=== PATIENT | male | born 1980 | race Caucasian/White ===

== ENCOUNTER 2020-09-01 14:00 | Emergency (ER) | payer OTHER, SELFPAY ==
[2020-09-01 15:04] VITALS: BP 149/91; PULSE 90; RESP 16; TEMP 37.1; O2SAT 99; BMI 24.5
[2020-09-01 15:47] LABS: COVID19 -Nasal RAPID Negative (Negative)
--- NOTE | 2020-09-01 18:31 | ED_ITS ---
HPI - URI/Sore Throat General Chief Complaint: Upper Respiratory Symptoms Stated Complaint: Exposed to COVID, Cold Like Symptoms Time Seen by Provider: 09/01/20 16:56 Source: patient Mode of arrival: Ambulatory Limitations: no limitations History of Present Illness HPI Narrative: 40-year-old male nonsmoker with noncontributory medical history presents with a chief complaint of concern about a recent COVID exposure. He was exposed to a person reading known to me COVID positive about 5 days ago and hopes to be tested. He denies any symptoms such as runny nose, sneezing, sore throat or cough. He denies chest pain or shortness of breath. He denies nausea, vomiting or diarrhea. He denies any loss of smell and has no fever. He is most concerned because his at home has cancer and wants to be safe. MD Complaint: other Context: sick contacts Associated symptoms: denies other symptoms Treatments prior to arrival: none Related Data Allergies Allergy/AdvReac Type Severity Reaction Status Date / Time Penicillins Allergy Verified 09/01/20 15:04 Review of Systems Constitutional Constitutional: Denies chills, Denies fatigue, Denies fever(s), Denies frequent falls, Denies lethargy and Denies weakness Eyes Eyes: Denies change in vision, Denies eye discharge, Denies irritation and De nies loss of vision ENT Ears, Nose, Mouth, and Throat: Denies change in voice, Denies dizziness, Denies neck pain, Denies sore throat and Denies throat swelling Cardiovascular Cardiovascular: Denies chest pain, Denies irregular heart rhythm, Denies lightheadedness, Denies palpitations, Denies dyspnea, Denies dyspnea on exertion and Denies orthopnea Respiratory Respiratory: Denies cough, Denies dyspnea, Denies dyspnea on exertion and Denies wheezing Gastrointestinal Gastrointestinal: Denies abdominal pain, Denies change in bowel habits, Denies diarrhea, Denies nausea and Denies vomiting Musculoskeletal Musculoskeletal: Denies neck pain and Denies numbness Integumentary/Breasts Skin/Breast: Denies pruritus, Denies erythema, Denies rash and Denies wounds Neurologic Neurologic: Denies behavioral changes, Denies confusion, Denies dizziness, Denies frequent falls, Denies loss of vision, Denies numbness and Denies weakness Psychiatric Psychiatric: Denies anxiety, Denies behavioral changes, Denies confusion, Denies depression, Denies homicidal ideation and Denies suicidal ideation Endocrine Endocrine: Denies fatigue, Denies flushing and Denies palpitations Hematologic/Lymphatic Hematologic/Lymphatic: Denies easy bruising Allergic/Immunologic Allergic/Immunologic: Denies urticaria, Denies throat swelling and Denies wheezing Patient History Social History Smoking Status: Never smoker Smoking Status: Never smoker alcohol intake frequency: other Substance Use Type: does not use Exam Narrative Exam Narrative: GEN: AOx3 and in mild distress EYES: Pupils are equal, round, and reactive to light and accommodation. Extraoccular muscles are intact bilaterally. There is no subconjunctival hemorrhage or exudate. CHEST: Lungs are clear to auscultation bilaterally and free of wheezes, rales, or rhonchi. Heart rate is regular rhythm, there are no murmurs, clicks, rubs, or gallops. There is no chest wall tenderness. ABD: Abdomen is soft and nontender. There is no guarding or rebound. Bowel sounds are normal in all 4 quadrants. There is no mass or organomegaly. EXT: Full painless ROM of all extremities with no loss of sensation or strength. SKIN: Warm, pink, and dry. No erythema or rash Initial Vital Signs Initial Vital Signs: Vital Signs Temperature 98.8 F 09/01/20 15:04 Pulse Rate 90 09/01/20 15:04 Respiratory Rate 16 09/01/20 15:04 Blood Pressure 149/91 H 09/01/20 15:04 Pulse Oximetry 99 09/01/20 15:04 Course Orders Ordered: ED Orders 09/01/20 15:10 COVID19 Stat Vital Signs Vital signs: Vital Signs - 8 hr 09/01/20 15:04 Temperature 98.8 F Pulse Rate 90 Respiratory Rate 16 Blood Pressure 149/91 H Pulse Oximetry 99 MDM - URI/Sore Throat Lab Data Labs: Lab Results 09/01/20 Range/Units 15:10 COVID-19 PCR Negative (Negative) Discharge Plan Departure Patient Disposition: Home Clinical Impression: Upper respiratory infection Qualifiers: URI type: unspecified viral URI Qualified Code(s): J06.9 - Acute upper respiratory infection, unspecified Instructions: Coronavirus Disease 2019 Activity Restrictions/Additional Instructions: *You have been diagnosed with [exposure to COVID-19, your swab today was negative] *What to do: *Take medications as directed *Follow up with your primary care provider in 2-3 days, call for an appointment. Let them know you were seen in the Emergency Department and that we ask that you be seen in follow up *Return to ER if you should have any new, worsening or concerning symptoms Referrals: Bashir Noguera [Primary Care Provider] -
== END 2020-09-01 18:30 | disposition home or self-care (01) ==
PROVIDERS: Emergency Medicine; Emergency Provider Emergency Medicine; PCP Student in an Organized Health Care Education/Training Program
DX: J06.9 Acute upper respiratory infection, unspecified (principal); Z20.828 Contact with and (suspected) exposure to other viral communicable diseases
CPT/HCPCS: 87635; 99281; 99282

== ENCOUNTER 2025-06-16 13:02 | Emergency (ER) | payer OTHER, SELFPAY ==
[2025-06-16 13:08] VITALS: BP 150/84; PULSE 94; RESP 15; TEMP 36.8; O2SAT 98; BMI 23.8
--- NOTE | 2025-06-16 15:26 | DI.CT.S_ITS ---
PROCEDURE: CT HEAD/BRAIN WO CON INDICATIONS: headaches increasing frequency TECHNIQUE: Noncontrast 4.5 mm thick angled axial sections acquired from the foramen magnum to the vertex, with coronal and sagittal reformats. For radiation dose reduction, the following was used: automated exposure control, adjustment of mA and/or kV according to patient size. COMPARISON: None. FINDINGS: Image quality: Diagnostic. CSF spaces: Basal cisterns are patent. No extra-axial fluid collections. Ventricles are normal in size and shape. Brain: No midline shift. No intracranial mass effect or hemorrhage. Arnold- white matter interface is normal. Skull and face: Calvarium and visualized facial bones are intact, without suspicious lesions. Sinuses: Visualized sinuses and mastoids are clear. IMPRESSION: No acute intracranial pathology. Dictated by: Vijay Arboleda M.D. on 06/16/2025 at 15:28 Approved by: Vijay Arboleda M.D. on 06/16/2025 at 15:30
--- NOTE | 2025-06-16 15:26 | DI.CT.S_ITS ---
PROCEDURE: CT ANGIO HEAD AND NECK INDICATIONS: left anterior neck pain with headache TECHNIQUE: After the administration of intravenous contrast, 1 mm thick sections acquired from the aortic arch through the [place] of [place]. 3-dimensional adrbpye-tdmvncenv-buiyambhob (MIP) and/or volume rendering reformats were acquired of the central intracranial vasculature and neck separately. For radiation dose reduction, the following was used: automated exposure control, adjustment of mA and/or kV according to patient size. COMPARISON: None. FINDINGS: Image quality: Diagnostic. Cerebral CT Angiogram: Internal carotid arteries: No acute findings. Intracranial ICA are patent with no significant stenosis. No occlusion. No aneurysm. Anterior cerebral arteries: Unremarkable. No significant stenosis. No occlusion. No aneurysm. Middle cerebral arteries: Unremarkable. No significant stenosis. No occlusion. No aneurysm. Posterior cerebral arteries: Persistent circulation bilaterally. No significant stenosis. No occlusion. No aneurysm. Basilar artery: Unremarkable. No significant stenosis. No occlusion. No aneurysm. Vertebral arteries: Unremarkable as visualized. Dural venous sinuses: Unremarkable given phase of enhancement. Other: Arterial phase appearance of the brain parenchyma is unremarkable. Neck CT Angiogram: Internal carotid arteries: Unremarkable. No significant stenosis. No dissection or occlusion. Common carotid arteries: Unremarkable. No significant stenosis. No dissection or occlusion. External carotid arteries: Unremarkable. No occlusion. Vertebral arteries: Unremarkable. No significant stenosis. No dissection or occlusion. Aortic Arch and Mediastinum: Partially visualized aortic arch unremarkable without evidence of aneurysm. Origins of the great vessels unremarkable. Other: Arterial phase soft tissues of the neck and chest are unremarkable. Soft tissue nodule within the subcutaneous tissues of the right neck near the midline measuring 1.2 cm likely reflecting epidermal inclusion cyst. IMPRESSION: No significant intracranial arterial abnormality is seen. No significant abnormality is seen within the arteries of the neck. Possible epidermal inclusion cyst within the superior neck near the right midline Any quantitative measurements of stenosis were performed using NASCET criteria. Dictated by: Vijay Arboleda M.D. on 06/16/2025 at 15:33 Approved by: Vijay Arboleda M.D. on 06/16/2025 at 15:38
--- NOTE | 2025-06-16 15:29 | ED.NECK ---
HPI - Neck Pain/Injury General Chief Complaint: Neck Pain/Injury Stated Complaint: Headaches, L Neck Pulsating When Standing Time Seen by Provider: 06/16/25 14:54 Mode of arrival: Ambulatory History of Present Illness HPI Narrative: 44-year-old male presents with left anterior neck pain that he woke up with this morning. He noticed it when he stood up out of bed and there was a sharp pain in the left side of his neck just above the clavicle. He noticed that standing up causes it to be triggered again. It is not worse with turning his head [id number] or taking a deep breath. He has no associated disturbances in speech or vision. He has no headache at this time but notes has had headaches off and on for several months. His is currently being treated for stage IV cancer and is concerned that his symptoms maybe similar to hers. He is worried that he may have a carotid artery dissection. Related Data Allergies Allergy/AdvReac Type Severity Reaction Status Date / Time Penicillins Allergy Verified 09/01/20 15:04 Review of Systems Review of Systems Narrative: Pertinent ROS obtained and negative except as stated in HPI Patient History Social History Smoking Status: Never smoker Smoking Status: Never smoker alcohol intake frequency: other Exam Initial Vital Signs Initial Vital Signs: Vital Signs Temperature 98.2 F 06/16/25 13:08 Pulse Rate 94 H 06/16/25 13:08 Respiratory Rate 15 06/16/25 13:08 Blood Pressure 150/84 H 06/16/25 13:08 Pulse Oximetry 98 06/16/25 13:08 Oxygen Delivery Method Room Air 06/16/25 13:08 Constitutional: Well appearing, no acute distress, pt winces in pain when asked to move to seated at edge of bed Head: NCAT. Neck: No carotid bruit. Carotid artery is palpable 2+ pulse. There is some discomfort with palpation superior to the clavicle at the insertion of the strap muscles. Patient winces in pain with taking a deep breath and sitting on the edge of the bed. Cardiovascular: RRR, no murmur or rub. 2+ radial pulses Pulmonary: CTA bilaterally, no respiratory distress Abdominal: soft, non-tender Extremities: No LE edema Skin: warm and dry, no diaphoresis Neurological: Alert and oriented x3. Symmetric shoulder elevation. CN II-XII intact. 5/5 strength and normal sensation Course Orders Ordered: ED Orders 06/16/25 15:26 CT angio head and neck Stat CT head/brain wo con Stat BMP [Basic Metabolic Panel] Stat CBC Auto Diff [Complete Blood Count AUTO DIFF] Stat Vital Signs Vital signs: Vital Signs - 8 hr 06/16/25 13:08 Temperature 98.2 F Pulse Rate 94 H Respiratory Rate 15 Blood Pressure 150/84 H Pulse Oximetry 98 Oxygen Delivery Method Room Air MDM - Neck Pain/Injury Medical Records Medical records narrative: This is a pleasant 44-year-old male with no chronic medical issues aside from GERD who presents with acute sharp left anterior neck pain that is intermittent since this morning. No injury or mechanism of trauma. No recent chiropractic manipulations. No signs symptoms of stroke or other neurologic symptoms. He is concerned that he is having a carotid artery dissection. Additionally he is reporting months of intermittent headaches. He is worried that his neck pain maybe related to his headaches and hoping to get some imaging done today. Vital signs are normal. The patient is well-appearing I do not appreciate any focal neurologic deficits. He has a 2+ carotid artery pulse and no bruit. 2+ radial pulses Explained to this patient I have very low suspicion for spontaneous carotid artery dissection at this time. He has quite anxious regarding this possibility and after some shared decision-making we have decided to proceed with imaging. He declines anything for pain. Imaging negative. Pt reassured and counseled on supportive home at care for MSK etiology. Lab Data 06/16/25 15:43 06/16/25 15:43 Labs: Lab Results 06/16/25 Range/Units 15:43 WBC 7.1 (4.5-11.0) X10^3/uL RBC 4.80 (4.5-5.9) X10^6/uL Hgb 14.5 (13.5-17.5) g/dL Hct 41.6 (41-53) % MCV 86.5 (80-100) fL MCH 30.2 (26-34) PG MCHC 34.9 (30-36) % RDW 12.8 (11.6-14.8) % Plt Count 294 (150-400) X10^3/uL Neut % (Auto) 73.5 (50-75) % Lymph % (Auto) 20.7 L (25-40) % [place] % (Auto) 5.1 (3-14) % Eos % (Auto) 0.2 L (2-4) % Baso % (Auto) 0.5 (0-2) % Neut # (Auto) 5200 (6594-4480) /uL Lymph # (Auto) 1500 (8509-6680) /uL [place] # (Auto) 400 (0-900) /uL Eos # (Auto) 0 (0-450) /uL Baso # (Auto) 0 (0-100) /uL Sodium 139 (137-145) mmol/L Potassium 4.4 (3.4-5.1) mmol/L Chloride 104 (98-107) mmol/L Carbon Dioxide 27 (22-32) mmol/L BUN 13 (9-20) mg/dL Creatinine 0.79 (0.66-1.25) mg/dL Estimated GFR > 60 (>60) mL/min BUN/Creatinine Ratio 16.5 (6-22) Glucose 106 H (70-99) mg/dL Calcium 9.6 (8.4-10.2) mg/dL Discharge Plan Departure Patient Disposition: Home Clinical Impression: Strain of neck muscle Instructions: DI for Neck Pain Referrals: Bashir Noguera [Primary Care Provider, Medical] Stand Alone Forms: Patient Portal/API
[2025-06-16 15:46] VITALS: BP 132/90; PULSE 80; RESP 16; O2SAT 98
[2025-06-16 15:52] LABS: Add Manual Diff / Slide Review NO; Hematocrit 41.6 % (41-53); Hemoglobin 14.5 g/dL (13.5-17.5); Lymphocytes Absolute Auto 1500 /uL (1100-4500); Mean Corpuscular HGB Conc 34.9 % (30-36); Mean Corpuscular Hemoglobin 30.2 PG (26-34); Mean Corpuscular Volume 86.5 fL (80-100); Platelet Count 294 X10^3/uL (150-400)
[2025-06-16 16:02] LABS: Blood Urea Nitrogen 13 mg/dL (9-20); Calcium 9.6 mg/dL (8.4-10.2); Carbon Dioxide 27 mmol/L (22-32); Chloride 104 mmol/L (98-107); Estimated Glomerular Filt Rate > 60 mL/min (>60); Glucose 106 mg/dL (70-99); HEMOLYSIS < 15 (0-50); Potassium 4.4 mmol/L (3.4-5.1); Sodium 139 mmol/L (137-145)
[2025-06-16 16:50] VITALS: BP 127/84; PULSE 80; RESP 14; O2SAT 96
== END 2025-06-16 17:15 | disposition home or self-care (01) ==
PROVIDERS: Emergency Provider Student in an Organized Health Care Education/Training Program; PCP Student in an Organized Health Care Education/Training Program
DX: S16.1XXA Strain of muscle, fascia and tendon at neck level, initial encounter (principal)
CPT/HCPCS: 36415; 70450; 70496; 70498; 80048; 85025; 99283; 99284; Q9967

== ENCOUNTER 2025-08-21 12:04 | Emergency (ER) | payer OTHER, SELFPAY ==
[2025-08-21 12:35] VITALS: BP 126/87; PULSE 90; RESP 17; TEMP 36.6; O2SAT 97; BMI 22.9
--- NOTE | 2025-08-21 12:39 | ED_ITS ---
HPI - Abdominal Pain <Clarissa Beard PA-C - Last Filed: 08/21/25 19:03> General Chief Complaint: Abdominal Pain Stated Complaint: abd owens x1mo, getting worse since yesterday Time Seen by Provider: 08/21/25 12:38 Source: patient Mode of arrival: Ambulatory History of Present Illness HPI narrative: Mr. Wahl is a pleasant 45-year-old male with a past medical history of GERD who presents to the emergency department for right upper quadrant abdominal pain x1 month. Patient states he has had a dull pain in his right upper quadrant, overlying the ribs, for the last month however the last few nights it has been getting worse. He describes the pain as a focal spot just over top of the right anterior lower rib. The pain was in the right lower quadrant of the abdomen a few days ago but has since radiated. Eating and drinking does not change the pain at all. States that he had a colonoscopy in January that was normal. He does have a family history of celiac disease. He is waiting on appointment to see GI in September. He was previously taking a PPI for his GERD however he has weaned off of this and has been taking an H2 eli, Pepcid, however over the last 1-2 months he is weaning off of Pepcid and taking it every other day. He denies any worsening of his acid reflux. Denies nausea, vomiting, diarrhea, constipation. He does note he has lost some weight over the last 1-2 months. His is currently dealing with terminal stage IV cancer. He does take meloxicam for low back pain occasionally but has not taken it in the last month. He denies any black or bloody stool. No dysuria or hematuria. No drug use. Related Data Allergies Allergy/AdvReac Type Severity Reaction Status Date / Time Penicillins Allergy Verified 08/21/25 12:35 Review of Systems <Clarissa Beard PA-C - Last Filed: 08/21/25 19:03> Review of Systems ROS Unobtainable: All systems reviewed & are unremarkable except as noted in HPI and below Patient History <Clarissa Beard PA-C - Last Filed: 08/21/25 19:03> Social History Smoking Status: Never smoker Smoking Status: Never smoker alcohol intake frequency: other Exam <Clarissa Beard PA-C - Last Filed: 08/21/25 19:03> Narrative Exam Narrative: GENERAL: 45 year old patient appears stated age. Well-developed patient, in no acute distress. HEAD: Atraumatic. Normocephalic. EYES: PERRL. Extraocular motions intact. No scleral icterus. No injection or drainage. ENT: Nose without bleeding, purulent drainage. Throat without erythema, tonsillar hypertrophy or exudate. Uvula midline. Airway patent. NECK: Trachea midline. Cervical ROM intact. CARDIOVASCULAR: Regular rate and rhythm. RESPIRATORY: ?Nonlabored respirations. ?Speaking in clear, full sentences. ?Clear to auscultation. Breath sounds equal bilaterally. No wheezes, rales, or rhonchi. ? GASTROINTESTINAL: Abdomen soft, nondistended. Bowel sounds present. Patient has a focal area of tenderness in the right upper quadrant that is actually overlying the base of the ribs. Negative Leon's sign. No rebound or guarding. NEURO: AOx3. ?Clear speech. ?Moves all 4 extremities appropriately. SKIN: No rash or erythema of visible areas Initial Vital Signs Initial Vital Signs: Vital Signs Temperature 98 F 08/21/25 12:35 Pulse Rate 90 08/21/25 12:35 Respiratory Rate 17 08/21/25 12:35 Blood Pressure 126/87 08/21/25 12:35 Pulse Oximetry 97 08/21/25 12:35 Oxygen Delivery Method Room Air 08/21/25 12:35 <Roxanna Garcia MD - Last Filed: 08/21/25 19:54> Initial Vital Signs Initial Vital Signs: Vital Signs Temperature 98 F 08/21/25 12:35 Pulse Rate 90 08/21/25 12:35 Respiratory Rate 17 08/21/25 12:35 Blood Pressure 126/87 08/21/25 12:35 Pulse Oximetry 97 08/21/25 12:35 Oxygen Delivery Method Room Air 08/21/25 12:35 Course <Clarissa Beard PA-C - Last Filed: 08/21/25 19:03> Orders Ordered: ED Orders 08/21/25 12:43 Complete Blood Count AUTO DIFF Stat Comprehensive Metabolic Panel Stat Lipase Stat 08/21/25 12:46 CT abdomen pelvis w con Stat XR chest 1V Stat Discontinued Medications Sodium Chloride (Normal Saline 0.9%) 1,000 mls @ 1,000 mls/hr IV BOLUS ONE Stop: 08/21/25 13:50 Last Infusion: 08/21/25 15:15 Dose: Infused Documented By: Admin: 08/21/25 13:44 Dose: 1,000 mls/hr Documented By: CTS Ketorolac Tromethamine (Ketorolac 30 Mg/Ml Vial) 15 mg IV NOW ONE Stop: 08/21/25 12:47 Last Admin: 08/21/25 15:15 Dose: Not Given Documented By: CTS Lidocaine (Lidocaine 5% Patch) 1 each TOP NOW ONE Stop: 08/21/25 16:49 Last Admin: 08/21/25 17:05 Dose: 1 each Documented By: HERMAN Ondansetron HCl (Ondansetron 4 Mg/2 Ml Inj) 4 mg IV NOW PRN PRN Reason: Nausea And Vomiting Ondansetron HCl (Ondansetron 4 Mg Odt) 4 mg PO NOW PRN PRN Reason: Nausea And Vomiting Vital Signs Vital signs: Vital Signs - 8 hr 08/21/25 12:35 08/21/25 16:48 Temperature 98 F Pulse Rate 90 84 Respiratory Rate 17 Blood Pressure 126/87 116/74 Pulse Oximetry 97 98 Oxygen Delivery Method Room Air Room Air <Roxanna Garcia MD - Last Filed: 08/21/25 19:54> Orders Ordered: ED Orders 08/21/25 12:43 Complete Blood Count AUTO DIFF Stat Comprehensive Metabolic Panel Stat Lipase Stat 08/21/25 12:46 CT abdomen pelvis w con Stat XR chest 1V Stat Discontinued Medications Sodium Chloride (Normal Saline 0.9%) 1,000 mls @ 1,000 mls/hr IV BOLUS ONE Stop: 08/21/25 13:50 Last Infusion: 08/21/25 15:15 Dose: Infused Documented By: Admin: 08/21/25 13:44 Dose: 1,000 mls/hr Documented By: CTS Ketorolac Tromethamine (Ketorolac 30 Mg/Ml Vial) 15 mg IV NOW ONE Stop: 08/21/25 12:47 Last Admin: 08/21/25 15:15 Dose: Not Given Documented By: CTS Lidocaine (Lidocaine 5% Patch) 1 each TOP NOW ONE Stop: 08/21/25 16:49 Last Admin: 08/21/25 17:05 Dose: 1 each Documented By: HERMAN Ondansetron HCl (Ondansetron 4 Mg/2 Ml Inj) 4 mg IV NOW PRN PRN Reason: Nausea And Vomiting Ondansetron HCl (Ondansetron 4 Mg Odt) 4 mg PO NOW PRN PRN Reason: Nausea And Vomiting Vital Signs Vital signs: Vital Signs - 8 hr 08/21/25 12:35 08/21/25 16:48 Temperature 98 F Pulse Rate 90 84 Respiratory Rate 17 Blood Pressure 126/87 116/74 Pulse Oximetry 97 98 Oxygen Delivery Method Room Air Room Air MDM - Abdominal Pain <Clarissa Beard PA-C - Last Filed: 08/21/25 19:03> Medical Records Attestation: I reviewed the patient's medical records. Lab Data 08/21/25 12:43 08/21/25 12:43 Labs: Lab Results 08/21/25 Range/Units 12:43 WBC 5.3 (4.5-11.0) X10^3/uL RBC 4.93 (4.5-5.9) X10^6/uL Hgb 15.1 (13.5-17.5) g/dL Hct 42.5 (41-53) % MCV 86.2 (80-100) fL MCH 30.6 (26-34) PG MCHC 35.5 (30-36) % RDW 12.9 (11.6-14.8) % Plt Count 297 (150-400) X10^3/uL Neut % (Auto) 68.6 (50-75) % Lymph % (Auto) 25.1 (25-40) % [place] % (Auto) 5.6 (3-14) % Eos % (Auto) 0.2 L (2-4) % Baso % (Auto) 0.5 (0-2) % Neut # (Auto) 3700 (9575-3299) /uL Lymph # (Auto) 1300 (5154-2292) /uL [place] # (Auto) 300 (0-900) /uL Eos # (Auto) 0 (0-450) /uL Baso # (Auto) 0 (0-100) /uL Sodium 140 (137-145) mmol/L Potassium 4.7 (3.4-5.1) mmol/L Chloride 104 (98-107) mmol/L Carbon Dioxide 24 (22-32) mmol/L BUN 13 (9-20) mg/dL Creatinine 0.76 (0.66-1.25) mg/dL Estimated GFR > 60 (>60) mL/min BUN/Creatinine Ratio 17.1 (6-22) Glucose 111 H (70-99) mg/dL Calcium 9.7 (8.4-10.2) mg/dL Total Bilirubin 0.8 (0.2-1.3) mg/dL AST 29 (17-59) IU/L ALT 31 (<50) IU/L Alkaline Phosphatase 75 (38-126) U/L Total Protein 8.6 H (6.3-8.2) g/dL Albumin 5.2 H (3.5-5.0) g/dL Globulin 3.4 (1.7-4.1) g/dL Albumin/Globulin Ratio 1.5 (1.0-2.8) Lipase 85 (23-300) U/L Imaging Data Chest x-ray: Radiologist's Impression: PROCEDURE: XR CHEST 1V INDICATIONS: ruq abd pain TECHNIQUE: One view of the chest was acquired. COMPARISON: None. FINDINGS: Surgical changes and devices: None. Lungs and pleura: Lungs are clear. No pleural effusions or pneumothorax. Mediastinum: Mediastinal contours appear normal. Heart size is normal. Bones and chest wall: No suspicious bony lesions. Overlying soft tissues appear unremarkable. IMPRESSION: No acute pulmonary process. Dictated by: Berta Saez M.D. on 08/21/2025 at 13:32 Approved by: Berta Saez M.D. on 08/21/2025 at 13:33 CT scan - abdomen/pelvis: Radiologist's Impression: PROCEDURE: CT ABDOMEN PELVIS W CON INDICATIONS: RUQ abd pain x 1 month, base of ribs TECHNIQUE: After the administration of intravenous contrast, axial sections acquired from the lung bases to the pubic symphysis. Coronal and sagittal reformats were performed. For radiation dose reduction, the following was used: automated exposure control, adjustment of mA and/or kV according to patient size. COMPARISON: None. FINDINGS: Image quality: Diagnostic. Lower Chest: No significant findings. ABDOMEN: Liver: No solid mass. Very mild diffuse hepatic steatosis. Gallbladder: No radiopaque gallstones or wall thickening. Biliary ducts: No biliary dilation. Pancreas: No ductal dilation. Spleen: Size is within normal limits. Adrenal Glands: No adrenal nodules. Kidneys and Ureters: No hydronephrosis. No solid mass. No complex renal cystic lesion which requires follow up. Stomach and Bowel: Normal colonic caliber, without significant wall thickening. Diverticulosis. Peritoneum: No abnormal intraperitoneal fluid. No free air. Normal appendix. Ventral Wall: No significant ventral hernia. Abdominal Nodes: No retroperitoneal or mesenteric adenopathy by size criteria. Vessels: Aorta and inferior vena cava are normal in size. PELVIS: Pelvic Organs: Unremarkable. Bladder: No bladder wall thickening, accounting for underdistention. Pelvic Nodes: No enlarged lymph nodes. Miscellaneous: No inguinal hernias are seen. Bones: No aggressive osseous abnormality. IMPRESSION: 1. No acute abdominal process identified. 2. Very mild diffuse hepatic steatosis. 3. Unremarkable CT appearance of the gallbladder. However, noncalcified stones are not typically visible by CT. There are no findings suggesting acute inflammation of the gallbladder. Dictated by: Vignesh Perez M.D. on 08/21/2025 at 14:21 Approved by: Vignesh Perez M.D. on 08/21/2025 at 14:30 MDM Narrative Medical decision making narrative: 45-year-old male with a past medical history of GERD who presents to the emergency department for right upper quadrant abdominal pain x1 month. Differential diagnosis includes but is not limited to cholecystitis, appendicitis, cholelithiasis, hepatic steatosis, muscular skeletal pain, costochondritis, precordial catch syndrome, etc. On exam the patient is in no acute distress, nontoxic-appearing, all vital signs within normal limits. He has been having worsening right upper quadrant abdominal pain for the last month, unchanged with eating, actually is somewhat over top of the ribcage and is tender with palpation. Negative Leon's sign. Pain was previously in the right lower quadrant. We will obtain CT abdomen pelvis with IV contrast, labs, treat with fluids Toradol nausea medication. Patient declined pain and nausea medication. CT reveals very mild diffuse hepatic steatosis. No acute abdominal process identified. Unremarkable CT appearance of the gallbladder. Labs reveal normal WBC count 5.3, hemoglobin 15.1 hematocrit 42.5. Platelets 297. Sodium 140, potassium 4.7, BUN 13 creatinine 0.76. Glucose 111. Normal total bilirubin, AST, ALT, alkaline phosphatase. Normal lipase 85. 1640: Printed and discussed all imaging and lab work results with the patient. He declines any urinary symptoms and does not wish to provide a urine at this time. He feels reassured by the findings and is following up with his GI doctor in about 25 days. Given the location of his pain quite superficial on the skin/soft tissue overlying right inferior rib region, we will try Lidoderm. Discussed strict ER return precautions with the patient and primary follow up. Patient verbalized understanding of all information and is agreeable with the plan. He is stable for discharge home. <Roxanna Garcia MD - Last Filed: 08/21/25 19:54> Lab Data Labs: Lab Results 08/21/25 Range/Units 12:43 WBC 5.3 (4.5-11.0) X10^3/uL RBC 4.93 (4.5-5.9) X10^6/uL Hgb 15.1 (13.5-17.5) g/dL Hct 42.5 (41-53) % MCV 86.2 (80-100) fL MCH 30.6 (26-34) PG MCHC 35.5 (30-36) % RDW 12.9 (11.6-14.8) % Plt Count 297 (150-400) X10^3/uL Neut % (Auto) 68.6 (50-75) % Lymph % (Auto) 25.1 (25-40) % [place] % (Auto) 5.6 (3-14) % Eos % (Auto) 0.2 L (2-4) % Baso % (Auto) 0.5 (0-2) % Neut # (Auto) 3700 (6144-7717) /uL Lymph # (Auto) 1300 (5060-7219) /uL [place] # (Auto) 300 (0-900) /uL Eos # (Auto) 0 (0-450) /uL Baso # (Auto) 0 (0-100) /uL Sodium 140 (137-145) mmol/L Potassium 4.7 (3.4-5.1) mmol/L Chloride 104 (98-107) mmol/L Carbon Dioxide 24 (22-32) mmol/L BUN 13 (9-20) mg/dL Creatinine 0.76 (0.66-1.25) mg/dL Estimated GFR > 60 (>60) mL/min BUN/Creatinine Ratio 17.1 (6-22) Glucose 111 H (70-99) mg/dL Calcium 9.7 (8.4-10.2) mg/dL Total Bilirubin 0.8 (0.2-1.3) mg/dL AST 29 (17-59) IU/L ALT 31 (<50) IU/L Alkaline Phosphatase 75 (38-126) U/L Total Protein 8.6 H (6.3-8.2) g/dL Albumin 5.2 H (3.5-5.0) g/dL Globulin 3.4 (1.7-4.1) g/dL Albumin/Globulin Ratio 1.5 (1.0-2.8) Lipase 85 (23-300) U/L Discharge Plan Departure Patient Disposition: Home Clinical Impression: Abdominal pain, right upper quadrant, Hepatic steatosis Instructions: DI for Abdominal Pain-Adult Activity Restrictions/Additional Instructions: Dear Mr. Wahl, Thank you for coming to the emergency department. I am very sorry that you have been dealing with right upper quadrant abdominal pain. Today we obtained lab work, chest x-ray and a CT scan of your abdomen and pelvis. Your CT did reveal very mild fatty liver but otherwise no abnormalities. At this time I would like you to rest, continue using hydration, try topical lidocaine patches to help with the pain, and follow up with your GI doctor as discussed. Please however return to the emergency department immediately if you develop new or worsening pain, vomiting, fevers or any other concern or new symptoms. Please follow up with your primary care doctor within the next 2-3 days for ER follow-up. (If you do not have a PCP you can call [phone]. ?to schedule an appointment with an [facility] Primary Care Provider) IF YOU DEVELOP ANY NEW OR WORSENING SYMPTOMS, RETURN TO THE ER! Please read the attached instructions, they highlight more specific treatments and interventions for you at home. Thank you for letting me participate in your care, Clarissa Beard PA-C Referrals: Chloé Niño MD [Primary Care Provider, Family Practice] Stand Alone Forms: Patient Portal/API ED Sign-out <Roxanna Garcia MD - Last Filed: 08/21/25 19:54> Cosign ED Attending Cosignature Attestation: I was immediately available in the department for consultation throughout this patient's visit. Roxanna Garcia MD
--- NOTE | 2025-08-21 12:46 | DI.CT.S_ITS ---
PROCEDURE: CT ABDOMEN PELVIS W CON INDICATIONS: RUQ abd pain x 1 month, base of ribs TECHNIQUE: After the administration of intravenous contrast, axial sections acquired from the lung bases to the pubic symphysis. Coronal and sagittal reformats were performed. For radiation dose reduction, the following was used: automated exposure control, adjustment of mA and/or kV according to patient size. COMPARISON: None. FINDINGS: Image quality: Diagnostic. Lower Chest: No significant findings. ABDOMEN: Liver: No solid mass. Very mild diffuse hepatic steatosis. Gallbladder: No radiopaque gallstones or wall thickening. Biliary ducts: No biliary dilation. Pancreas: No ductal dilation. Spleen: Size is within normal limits. Adrenal Glands: No adrenal nodules. Kidneys and Ureters: No hydronephrosis. No solid mass. No complex renal cystic lesion which requires follow up. Stomach and Bowel: Normal colonic caliber, without significant wall thickening. Diverticulosis. Peritoneum: No abnormal intraperitoneal fluid. No free air. Normal appendix. Ventral Wall: No significant ventral hernia. Abdominal Nodes: No retroperitoneal or mesenteric adenopathy by size criteria. Vessels: Aorta and inferior vena cava are normal in size. PELVIS: Pelvic Organs: Unremarkable. Bladder: No bladder wall thickening, accounting for underdistention. Pelvic Nodes: No enlarged lymph nodes. Miscellaneous: No inguinal hernias are seen. Bones: No aggressive osseous abnormality. IMPRESSION: 1. No acute abdominal process identified. 2. Very mild diffuse hepatic steatosis. 3. Unremarkable CT appearance of the gallbladder. However, noncalcified stones are not typically visible by CT. There are no findings suggesting acute inflammation of the gallbladder. Dictated by: Vignesh Perez M.D. on 08/21/2025 at 14:21 Approved by: Vignesh Perez M.D. on 08/21/2025 at 14:30
--- NOTE | 2025-08-21 12:46 | DI.RAD.S_ITS ---
PROCEDURE: XR CHEST 1V INDICATIONS: ruq abd pain TECHNIQUE: One view of the chest was acquired. COMPARISON: None. FINDINGS: Surgical changes and devices: None. Lungs and pleura: Lungs are clear. No pleural effusions or pneumothorax. Mediastinum: Mediastinal contours appear normal. Heart size is normal. Bones and chest wall: No suspicious bony lesions. Overlying soft tissues appear unremarkable. IMPRESSION: No acute pulmonary process. Dictated by: Berta Saez M.D. on 08/21/2025 at 13:32 Approved by: Berta Saez M.D. on 08/21/2025 at 13:33
[2025-08-21 13:13] LABS: Add Manual Diff / Slide Review NO; Hematocrit 42.5 % (41-53); Hemoglobin 15.1 g/dL (13.5-17.5); Lymphocytes Absolute Auto 1300 /uL (1100-4500); Mean Corpuscular HGB Conc 35.5 % (30-36); Mean Corpuscular Hemoglobin 30.6 PG (26-34); Mean Corpuscular Volume 86.2 fL (80-100); Platelet Count 297 X10^3/uL (150-400)
[2025-08-21 13:25] LABS: Alanine Aminotransferase 31 IU/L (<50); Albumin 5.2 g/dL (3.5-5.0); Albumin Globulin Ratio 1.5 (1.0-2.8); Alkaline Phosphatase 75 U/L (38-126); Blood Urea Nitrogen 13 mg/dL (9-20); Calcium 9.7 mg/dL (8.4-10.2); Carbon Dioxide 24 mmol/L (22-32); Chloride 104 mmol/L (98-107); Estimated Glomerular Filt Rate > 60 mL/min (>60); Globulin 3.4 g/dL (1.7-4.1); Glucose 111 mg/dL (70-99); HEMOLYSIS < 15 (0-50); Lipase 85 U/L (23-300); Potassium 4.7 mmol/L (3.4-5.1); Sodium 140 mmol/L (137-145); Total Protein 8.6 g/dL (6.3-8.2)
[2025-08-21] MEDS: SODIUM CHLORIDE 0.9% 1,000 ML 1000 ML IV (13:44)
[2025-08-21 16:48] VITALS: BP 116/74; PULSE 84; O2SAT 98
[2025-08-21] MEDS: LIDOCAINE 5% PATCH 1 EACH TOP (17:05)
== END 2025-08-21 17:08 | disposition home or self-care (01) ==
PROVIDERS: Emergency Provider Physician Assistant
DX: R10.11 Right upper quadrant pain (principal); K76.0 Fatty (change of) liver, not elsewhere classified; Z83.79 Family history of other diseases of the digestive system
CPT/HCPCS: 71045; 74177; 80053; 83690; 85025; 99283; 99284; J7030; Q9967